=== PATIENT | male | born 2000 | race Two or more races ===

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

== ENCOUNTER 2019-06-06 20:05 | Emergency (ER) | payer OTHER, BC, MEDICAID ==
[2019-06-06] MEDS ORDERED: NORMAL SALINE 1000 ML 1,000 ML IV ONE ×3 (20:23→22:55)
--- NOTE | 2019-06-06 20:26 | ER Document Report ---
ED General - General Stated Complaint: BODY CRAMPS/HEAT EXPOSURE Time Seen by Provider: 06/06/19 20:19 Notes: Patient is a 18-year-old male that comes to the emergency department for chief complaint of heat exposure, muscle cramps, lightheadedness, and vomiting. He states he is working out in the heat all day. He started cramping up and then vomiting just prior to arrival, he comes by EMS. Initial heart rate with EMS was 120, initial blood pressure was 70/40. Patient states he was trying to keep up with water during the day, denies recreational drugs or alcohol. He did not pass out, he denies chest pain, he denies abdominal pain, he denies fever. He states since they started fluids and he was given 4 mg of Zofran he already feels much better. He denies any diagnosed medical problems, any daily medications. TRAVEL OUTSIDE OF THE [place] IN LAST 30 DAYS: No - Related Data Allergies/Adverse Reactions: No Known Allergies Allergy (Verified 02/16/18 18:29) Past Medical History - General Information source: Patient - Social History Smoking Status: Never Smoker Frequency of alcohol use: None Drug Abuse: None Lives with: Family Family History: Reviewed & Not Pertinent Pulmonary Medical History: Reports: Hx Asthma Renal/ Medical History: Denies: Hx Peritoneal Dialysis Surgical Hx: Negative - Immunizations Immunizations up to date: Yes Hx Diphtheria, Pertussis, Tetanus Vaccination: Yes Review of Systems - Review of Systems Constitutional: See HPI EENT: No symptoms reported Cardiovascular: No symptoms reported Respiratory: No symptoms reported Gastrointestinal: See HPI Genitourinary: No symptoms reported Male Genitourinary: No symptoms reported Musculoskeletal: See HPI Skin: No symptoms reported Hematologic/Lymphatic: No symptoms reported Neurological/Psychological: No symptoms reported Physical Exam - Vital signs Vitals: Temp Resp BP Pulse Ox 98.2 F 16 132/74 H 98 06/06/19 20:34 06/06/19 20:34 06/06/19 20:34 06/06/19 20:34 - Notes Notes: GENERAL: Alert, interacts well. No acute distress. HEAD: Normocephalic, atraumatic. EYES: Pupils equal, round, and reactive to light. Extraocular movements intact. ENT: Oral mucosa very dry, tongue midline. Oropharynx unremarkable. Airway patent. LUNGS: Clear to auscultation bilaterally, no wheezes, rales, or rhonchi. No respiratory distress. HEART: Regular rate and rhythm. No murmur ABDOMEN: Soft, non-tender. Non-distended. Bowel sounds present in all 4 quadrants. GENITOURINARY: Deferred EXTREMITIES: Moves all 4 extremities spontaneously. No edema, normal radial and dorsalis pedis pulses bilaterally. No cyanosis. BACK: no cervical, thoracic, lumbar midline tenderness. No saddle anesthesia, normal distal neurovascular exam. Moves all extremities in full range of motion. NEUROLOGICAL: Alert and oriented x3. Normal speech. Cranial nerves II through XII grossly intact. PSYCH: Normal affect, normal mood. SKIN: Warm, dry, normal turgor. No rashes or lesions noted. Course - Re-evaluation Re-evalutation: Patient has dry mucous membranes but otherwise is well-appearing. His reported symptoms are very suggestive of heat exhaustion. CBC is nonspecific. Chemistry shows acute renal insufficiency with a creatinine of 2. CK is only in the 400s. Electrolytes generally unremarkable. Patient symptoms have resolved after initiation of IV fluids and Zofran. He is very well-appearing. He is not tachycardic. Patient given 3 L of normal saline, drink fluids, chemistry was rechecked and kidney functioning is significantly improving. I discussed with patient, he will relax, drinking fluids, he was provided with work-release for tomorrow. Discussed follow-up and return precautions. Patient states understanding and agreement. Stable at time of discharge. - Vital Signs Vital signs: Temp Pulse Resp BP Pulse Ox 98.4 F 18 124/61 99 06/07/19 01:15 06/07/19 01:15 06/07/19 01:15 06/07/19 01:15 - Laboratory Result Diagrams: 06/06/19 20:47 06/07/19 00:04 Laboratory results interpreted by me: 06/06/19 06/06/19 06/07/19 20:47 20:47 00:04 WBC 13.2 H Seg Neutrophils % 89.2 H Lymphocytes % 5.4 L Absolute Neutrophils 11.8 H Sodium 134.3 L 135.2 L Chloride 94 L BUN 40 H 33 H Creatinine 2.09 H 1.36 H Est GFR ( Amer) 50 L Est GFR (Non-Af Amer) 41 L Calcium 10.4 H Creatine Kinase 461 H - EKG Interpretation by Me Additional EKG results interpreted by me: EKG shows sinus rhythm at a rate of 89, QTC of 477, MT interval of 128. No T wave inversions or ST segment changes in consecutive leads. Discharge - Discharge Clinical Impression: Dehydration, Muscle cramps, Acute renal insufficiency Heat exhaustion Qualifiers: Encounter type: initial encounter Qualified Code(s): T67.5XXA - Heat exhaustion, unspecified, initial encounter Condition: Stable Disposition: HOME, SELF-CARE Additional Instructions: Continue rehydration at home. Rest over the next day. Try to keep better hydration with long hot days of work. Follow-up with primary care. Return if you worsen including maternal cramps, inability to urinate, vomiting, or any other concerning symptoms. Forms: Return to Work
[2019-06-06 21:11] LABS: ABSOLUTE LYMPHOCYTES (AUTO) 0.7 10^3/uL (0.5-4.7); ABSOLUTE MONOCYTES (AUTO) 0.7 10^3/uL (0.1-1.4); ABSOLUTE NEUT (AUTO) 11.8 10^3/uL (1.7-8.2); BASOPHILS % (AUTO) 0.2 % (0-2); LYMPHOCYTES % (AUTO) 5.4 % (13-45); MEAN CORPUSCULAR HEMOGLOBIN 30.6 pg (27.0-33.4); MEAN CORPUSCULAR VOLUME 90 fl (80-97); MONOCYTES % (AUTO) 5.2 % (3-13); PLATELET COUNT 185 10^3/uL (150-450); RED BLOOD COUNT 5.21 10^6/uL (4.35-5.55); RED CELL DISTRIBUTION WIDTH 12.9 % (11.5-14.0); SEGMENTED NEUTROPHILS % (AUTO) 89.2 % (42-78); TOTAL CELLS COUNTED % (AUTO) 100 %; WHITE BLOOD COUNT 13.2 10^3/uL (4.0-10.5)
[2019-06-06 21:25] LABS: ANION GAP 18 (5-19); BLOOD UREA NITROGEN 40 mg/dL (7-20); CALCIUM 10.4 mg/dL (8.4-10.2); CARBON DIOXIDE 22 mmol/L (22-30); CHLORIDE 94 mmol/L (98-107); CREATINE KINASE 461 U/L (55-170); GLUCOSE 95 mg/dL (75-110); POTASSIUM 4.5 mmol/L (3.6-5.0)
--- NOTE | 2019-06-06 23:15 | EKG REPORT ---
SEVERITY:- BORDERLINE ECG - SINUS RHYTHM BORDERLINE PROLONGED QT INTERVAL : Confirmed by: Gracia Izaguirre 06-Jun-2019 23:14:58
[2019-06-07 00:25] LABS: ANION GAP 12 (5-19); BLOOD UREA NITROGEN 33 mg/dL (7-20); CARBON DIOXIDE 22 mmol/L (22-30); CHLORIDE 101 mmol/L (98-107); GLUCOSE 110 mg/dL (75-110); POTASSIUM 4.2 mmol/L (3.6-5.0)
[2019-06-07 01:22] VITALS: BP 124/61
== END 2019-06-07 01:28 | disposition home or self-care (01) ==
LOC: ER 20:05
DX: T67.5XXA Heat exhaustion, unspecified, initial encounter (principal); X58.XXXA Exposure to other specified factors, initial encounter; E86.0 Dehydration; N28.9 Disorder of kidney and ureter, unspecified; R25.2 Cramp and spasm; R11.10 Vomiting, unspecified; J45.909 Unspecified asthma, uncomplicated
CPT/HCPCS: 93005; 99284; 96360; 96361; 36415; 82550; 85025; 80048; 93010; J7030 ×2

== ENCOUNTER → 2019-06-14 | Outpatient (CLI) | payer BC, MEDICAID ==
--- NOTE | 2019-06-14 13:03 | RADIOLOGY REPORT (SQ) ---
EXAM DESCRIPTION: SCOLIOSIS SERIES COMPLETED DATE/TIME: 06/14/2019 12:43 pm REASON FOR STUDY: SCOLIOSIS Z87.39 PERSONAL HISTORY OF DISEASES OF THE MS SYS AND CONN T S39.012A STRAIN OF MUSCLE, FASCIA AND TENDON OF LOWER BACK, COMPARISON: None. NUMBER OF VIEWS: One view. TECHNIQUE: Standing AP exam of the thoracolumbar spine with measurement of the DUENAS angles. LIMITATIONS: None. FINDINGS: GENERALIZED BONY FINDINGS: No anomalies. No worrisome bone lesions. THORACIC SPINE: APEX: T5-T6 ANGULATION: Curvature convex to the left. DEGREES: 39 LUMBAR SPINE: APEX: L1-L2 ANGULATION: Curvature convex to the right. DEGREES: 21 CHANGE: Not applicable - no prior studies. OTHER: No other significant findings. IMPRESSION: SCOLIOSIS WITH MEASUREMENTS ABOVE. TECHNICAL DOCUMENTATION: JOB ID: [id number] [employer]- All Rights Reserved Reading location - IP/workstation name: [email or web address]
== END ==
LOC: OD 12:11
PROVIDERS: ATTEND Nurse Practitioner Acute Care
DX: S39.012A Strain of muscle, fascia and tendon of lower back, initial encounter (principal); M41.85 Other forms of scoliosis, thoracolumbar region; X58.XXXA Exposure to other specified factors, initial encounter
CPT/HCPCS: 72082

== ENCOUNTER 2019-06-29 11:25 | Emergency (ER) | payer BC, MEDICAID ==
--- NOTE | 2019-06-29 12:07 | ER Document Report ---
ED Medical Screen (RME) - General Chief Complaint: Chest Pain Stated Complaint: CHEST PAIN Time Seen by Provider: 06/29/19 12:06 Primary Care Provider: MARIANNE MARCUS LAUNCH LEADER [Primary Care Provider] - Follow up as needed Mode of Arrival: Ambulatory Information source: Patient Notes: Patient is a 18-year-old male presenting to the emergency department sudden onset chest pain that began at 1030 this morning. He describes the chest pain as being sharp stabbing into the left side of his chest. He reports associated nausea. He has not vomited. Mother is at bedside and reports that her other child was recently admitted for a "heart attack". She reports he is was admitted here to the hospital for 5 days. Patient currently denies any drug use. Exam: Patient hyperventilating, reproducible pain with palpation to the left chest wall. I have greeted and performed a rapid initial assessment of this patient. A comprehensive ED assessment and evaluation of the patient, analysis of test results and completion of the medical decision making process will be conducted by additional ED providers. I have specifically instructed the patient or family members with the patient to immediately return to any nursing staff should anything change in the patient's condition or with their chief complaint. This medical record was dictated with voice recognizing software. There may be grammatical, syntax errors that are unintended. TRAVEL OUTSIDE OF THE [place] IN LAST 30 DAYS: No - Related Data Allergies/Adverse Reactions: No Known Allergies Allergy (Verified 02/16/18 18:29) Past Medical History Pulmonary Medical History: Reports: Hx Asthma Renal/ Medical History: Denies: Hx Peritoneal Dialysis - Immunizations Immunizations up to date: Yes Hx Diphtheria, Pertussis, Tetanus Vaccination: Yes Physical Exam - Vital signs Vitals: Temp Pulse Resp BP Pulse Ox 98.0 F 83 22 140/82 H 99 06/29/19 11:45 06/29/19 11:45 06/29/19 11:45 06/29/19 11:45 06/29/19 11:45 Course - Vital Signs Vital signs: Temp Pulse Resp BP Pulse Ox 98.0 F 83 22 140/82 H 99 06/29/19 11:45 06/29/19 11:45 06/29/19 11:45 06/29/19 11:45 06/29/19 11:45 Doctor's Discharge - Discharge Referrals: MARIANNE MARCUS, LAUNCH LEADER [Primary Care Provider] - Follow up as needed
[2019-06-29] MEDS ORDERED: ONDANSETRON HCL INJ/PF 4 MG/2 ML SDV IV ONE (12:09)
[2019-06-29 12:28] LABS: ABSOLUTE LYMPHOCYTES (AUTO) 1.2 10^3/uL (0.5-4.7); ABSOLUTE MONOCYTES (AUTO) 0.8 10^3/uL (0.1-1.4); ABSOLUTE NEUT (AUTO) 7.2 10^3/uL (1.7-8.2); BASOPHILS % (AUTO) 0.3 % (0-2); EOSINOPHILS % (AUTO) 0.3 % (0-6); HEMATOCRIT 47.5 % (37.9-51.0); HEMOGLOBIN 16.3 g/dL (13.5-17.0); LYMPHOCYTES % (AUTO) 12.8 % (13-45); MEAN CORPUSCULAR HEMOGLOBIN 30.9 pg (27.0-33.4); MEAN CORPUSCULAR HGB CONC 34.2 g/dL (32.0-36.0); MEAN CORPUSCULAR VOLUME 90 fl (80-97); PLATELET COUNT 211 10^3/uL (150-450); RED BLOOD COUNT 5.27 10^6/uL (4.35-5.55); RED CELL DISTRIBUTION WIDTH 13.2 % (11.5-14.0); SEGMENTED NEUTROPHILS % (AUTO) 77.6 % (42-78); TOTAL CELLS COUNTED % (AUTO) 100 %; WHITE BLOOD COUNT 9.4 10^3/uL (4.0-10.5)
--- NOTE | 2019-06-29 12:36 | RADIOLOGY REPORT (SQ) ---
EXAM DESCRIPTION: CHEST 2 VIEWS COMPLETED DATE/TIME: 06/29/2019 12:29 pm REASON FOR STUDY: chest pain COMPARISON: 09/09/2016. EXAM PARAMETERS: NUMBER OF VIEWS: two views TECHNIQUE: Digital Frontal and Lateral radiographic views of the chest acquired. RADIATION DOSE: NA LIMITATIONS: none FINDINGS: LUNGS AND PLEURA: No opacities, masses or pneumothorax. No pleural effusion. MEDIASTINUM AND HILAR STRUCTURES: No masses or contour abnormalities. HEART AND VASCULAR STRUCTURES: Heart normal size. No evidence for failure. BONES: No acute findings. Chronic S-shaped scoliosis. HARDWARE: None in the chest. OTHER: No other significant finding. IMPRESSION: NO ACUTE RADIOGRAPHIC FINDING IN THE CHEST. TECHNICAL DOCUMENTATION: JOB ID: [id number] [employer]- All Rights Reserved Reading location - IP/workstation name: [email or web address]
[2019-06-29 12:42] LABS: ALBUMIN 5.5 g/dL (3.7-5.6); ALKALINE PHOSPHATASE 74 U/L (65-260); ANION GAP 16 (5-19); ASPARTATE AMINO TRANSFERASE 27 U/L (10-45); BILIRUBIN,DIRECT 0.4 mg/dL (0.0-0.4); BILIRUBIN,TOTAL 1.5 mg/dL (0.2-1.3); BLOOD UREA NITROGEN 19 mg/dL (7-20); CALCIUM 10.5 mg/dL (8.4-10.2); CARBON DIOXIDE 25 mmol/L (22-30); CHLORIDE 98 mmol/L (98-107); CREATINE KINASE 226 U/L (55-170); GLUCOSE 86 mg/dL (75-110); TOTAL PROTEIN 8.8 g/dL (6.3-8.2)
[2019-06-29 13:37] LABS: URINE AMPHETAMINES SCREEN NEGATIVE; URINE BARBITURATES SCREEN NEGATIVE; URINE BENZODIAZEPINES SCREEN NEGATIVE; URINE COCAINE SCREEN NEGATIVE; URINE MARIJUANA (THC) SCREEN UNCONFIRMED POSITIVE; URINE METHADONE SCREEN NEGATIVE; URINE PHENCYCLIDINE SCREEN NEGATIVE
--- NOTE | 2019-06-29 17:11 | ER Document Report ---
ED General - General Chief Complaint: Chest Pain Stated Complaint: CHEST PAIN Time Seen by Provider: 06/29/19 12:06 Primary Care Provider: MARIANNE MARCUS NP [NURSE PRACTITIONER] - Follow up as needed Mode of Arrival: Ambulatory TRAVEL OUTSIDE OF THE [place] IN LAST 30 DAYS: No - HPI Notes: 18-year-old male with history of asthma presents to the ED for evaluation of chest pain that started while he was weed whacking approximately 6 hours ago. Patient states that he experienced chest pain is been persistent since then. Has not tried any [id number] medications. Denies previous history of cardiac issues. Patient does use a Ventolin inhaler for his asthma however states that he does need to use his asthma inhaler more, patient was taking S ingulair but has since run out. Is a patient of [facility]. Denies fevers, chills, chest pain,palpitations, shortness of breath, dyspnea, nausea, vomiting, diarrhea, abdominal pain, hematuria,blurred vision, double vision, loss of vision, speech changes, LH, dizziness, syncope, headaches, wheezing, ST, URI, neck pain, weakness, bowel or bladder dysfunction, saddle anesthesia, numbness or tingling in bilateral upper or lower extremities equally, muscle paralysis, weakness in bilateral upper or lower extremities equally or rash. - Related Data Allergies/Adverse Reactions: No Known Allergies Allergy (Verified 02/16/18 18:29) Past Medical History - General Information source: Patient - Social History Smoking Status: Never Smoker Chew tobacco use (# tins/day): No Frequency of alcohol use: None Drug Abuse: None Family History: Reviewed & Not Pertinent Patient has suicidal ideation: No Patient has homicidal ideation: No Pulmonary Medical History: Reports: Hx Asthma Renal/ Medical History: Denies: Hx Peritoneal Dialysis - Immunizations Immunizations up to date: Yes Hx Diphtheria, Pertussis, Tetanus Vaccination: Yes Review of Systems - Review of Systems Constitutional: No symptoms reported EENT: No symptoms reported Cardiovascular: See HPI Respiratory: See HPI Gastrointestinal: No symptoms reported Genitourinary: No symptoms reported Male Genitourinary: No symptoms reported Musculoskeletal: No symptoms reported Skin: No symptoms reported Hematologic/Lymphatic: No symptoms reported Neurological/Psychological: No symptoms reported Physical Exam - Vital signs Vitals: Temp Pulse Resp BP Pulse Ox 98.0 F 83 22 140/82 H 99 08/15/19 11:45 06/29/19 11:45 06/29/19 11:45 06/29/19 11:45 06/29/19 11:45 - Notes Notes: PHYSICAL EXAMINATION: GENERAL: Well-appearing, well-nourished and in no acute distress. HEAD: Atraumatic, normocephalic. EYES: Pupils equal round and reactive to light, extraocular movements intact, sclera anicteric, conjunctiva are normal. ENT: Nares patent, oropharynx clear without exudates. Moist mucous membranes. NECK: Normal range of motion, supple without lymphadenopathy LUNGS: Breath sounds clear to auscultation bilaterally and equal. No wheezes rales or rhonchi. HEART: Regular rate and rhythm without murmurs. Reproducible chest pain on palpation ABDOMEN: Soft, nontender, nondistended abdomen. No guarding, no rebound. No masses appreciated. Musculoskeletal: Normal range of motion, no pitting or edema. No cyanosis. NEUROLOGICAL: Cranial nerves grossly intact. Normal speech, normal gait. Normal sensory, motor exams PSYCH: Normal mood, normal affect. SKIN: Warm, Dry, normal turgor, no rashes or lesions noted. Course - Re-evaluation Re-evalutation: 06/29/19 19:40 18-year-old male afebrile vitals stable no distress, nurse's notes reviewed. 2 sets of troponin drawn 4 hours apart negative, EKG non-STEMI, no ST segment changes, chest x-ray unremarkable. CMP negative for hepatic or renal dysfunction, CBC for leukocytosis or anemia. Discussed with patient will restart him on Singulair, will give patient prednisone course for his asthma exacerbation, refill his pro-air. Discussed the patient was given referral to chief engineer production to follow-up for his costochondritis. advised to take otc ibu and apap for his pain. Work note given. After performing a Medical Screening Examination, I estimate there is LOW risk for RUPTURED ESOPHAGUS, PNEUMOTHORAX, PULMONARY EMBOLISM, ACUTE CORONARY SYNDROME, OR THORACIC AORTIC DISSECTION, thus I consider the discharge disposition reasonable. I have reevaluated this patient multiple times and no significant life threatening changes are noted. The patient and I have discussed the diagnosis and risks, and we agree with discharging home with close follow-up. We also discussed returning to the Emergency Department immediately if new or worsening symptoms occur. We have discussed the symptoms which are most concerning (e.g., bloody sputum, worsening pain or shortness of breath) that necessitate immediate return. - Vital Signs Vital signs: Temp Pulse Resp BP Pulse Ox 98.0 F 83 16 140/82 H 97 06/29/19 11:45 06/29/19 11:45 06/29/19 19:00 06/29/19 11:45 06/29/19 19:00 - Laboratory Result Diagrams: 06/29/19 12:10 06/29/19 12:10 Laboratory results interpreted by me: 06/29/19 06/29/19 12:10 12:10 Lymphocytes % 12.8 L Calcium 10.5 H Total Bilirubin 1.5 H Creatine Kinase 226 H Total Protein 8.8 H Discharge - Discharge Clinical Impression: Asthma exacerbation, Costochondritis Condition: Stable Disposition: HOME, SELF-CARE Instructions: Chest Wall Pain ([facility]), Asthma ([facility]) Additional Instructions: Your EKG was normal, your chest x-ray was normal. Her cardiac enzymes as well as your CBC and your metabolic panel were normal. You have an exacerbation of your asthma as well as costochondritis. Alternate between Tylenol and ibuprofen for pain control. Apply warm compress to chest several times a day to try to he lp with inflammation. Follow-up with chief engineer production as well as primary care provider. Return immediately for any new or worsening symptoms. Follow up with primary care provider, call tomorrow to make followup appointment. Prescriptions: Montelukast Sodium [Singulair 10 mg Tablet] 10 mg PO QHS #30 tablet Albuterol Sulfate [Proair Respiclick] 90 mcg IH Q4HP PRN #1 [id number] PRN Reason: Prednisone [Deltasone 20 mg Tablet] 3 tab PO DAILY 5 Days #15 tablet Forms: Return to Work Referrals: MARIANNE MARCUS NP [NURSE PRACTITIONER] - Follow up as needed SATISH MISHRA MD [ACTIVE STAFF] - Follow up as needed NIALL MATTHEW MD [ACTIVE STAFF] - Follow up as needed
[2019-06-29 20:10] VITALS: BP 128/83
--- NOTE | 2019-07-01 10:16 | EKG REPORT ---
SEVERITY:- NORMAL ECG - SINUS RHYTHM : Confirmed by: Gracia Izaguirre 01-Jul-2019 10:16:06
== END 2019-06-29 20:09 | disposition home or self-care (01) ==
LOC: ER 11:25
DX: M94.0 Chondrocostal junction syndrome [Tietze] (principal); J45.901 Unspecified asthma with (acute) exacerbation; Z79.899 Other long term (current) drug therapy; R07.9 Chest pain, unspecified
CPT/HCPCS: 93005; 99285; 96374; 36415; 82550; 85025; 80053; 84484; 80307; 71046; 93010; J2405